=== PATIENT | male | born 1950 | race Caucasian/White ===

== ENCOUNTER → 2018-05-03 | Outpatient (CLI) | payer MEDICARE ==
[~2018-05-03] MED LIST: CLONIDINE0.1; GLYBURIDE 2.52.5 MG; HYDROCODONE-APA1 TA1 PO; KEFLEX500 MG PO; LISINOPRIL10 MG; LOPRESSOR100 M1; METFORMIN HCL500 MG
== END ==
LOC: M.RAD 17:00
DX: M47.816 Spondylosis without myelopathy or radiculopathy, lumbar region (principal); M25.78 Osteophyte, vertebrae; M48.061 Spinal stenosis, lumbar region without neurogenic claudication; M51.36 Other intervertebral disc degeneration, lumbar region; I70.0 Atherosclerosis of aorta; E11.9 Type 2 diabetes mellitus without complications; I10 Essential (primary) hypertension; I63.9 Cerebral infarction, unspecified

== ENCOUNTER → 2018-09-06 | Outpatient (CLI) | payer MEDICARE | LOC: M.NUC 07:22 | DX: R10.9 Unspecified abdominal pain (principal); E11.9 Type 2 diabetes mellitus without complications; I10 Essential (primary) hypertension; M54.5 Low back pain; G89.29 Other chronic pain; Z88.8 Allergy status to other drugs, medicaments and biological substances ==

== ENCOUNTER 2019-06-20 13:28 | Inpatient (IN) | payer MEDICARE ==
[~2019-06-20] VITALS: Ht 177.8 cm; Wt 127.9 kg
[~2019-06-20 13:28] MED LIST changes: +CLONIDINE HCL0.1 MG PO; -CLONIDINE0.1; -GLYBURIDE 2.52.5 MG; +GLYBURIDE 2.52.5 MG PO; -LISINOPRIL10 MG; +LISINOPRIL10 MG PO; -LOPRESSOR100 M1; +LOPRESSOR100 M1 PO
[2019-06-20] MEDS ORDERED: DILTIAZEM ER180 M2 PO (13:42)
[2019-06-20 13:51] LABS: ABSOLUTE BASOPHILS 0.1 thou/uL (0.0-0.2); ABSOLUTE EOSINOPHILS 0.2 thou/uL (0.0-0.7); ABSOLUTE LYMPHOCYTES 1.3 thou/uL (0.8-5.3); ABSOLUTE MONOCYTES 0.6 thou/uL (0.0-1.2); ABSOLUTE NEUTROPHILS 5.7 thou/uL (1.6-8.1); BASOPHILS 1.1 %; EOSINOPHILS 2.6 %; HEMATOCRIT 50.1 % (42.0-52.0); HEMOGLOBIN 16.1 gm/dL (14.0-18.0); LYMPHOCYTES 16.1 %; MCHC 32.2 g/dL (28.0-37.0); MCV 77.8 fL (80.0-100.0); MONOCYTES 8.1 %; MPV 8.5 fl. (7.2-11.1); NUCLEATED RBCS 0 /100WBC; PLATELET COUNT* 248 thou/uL (150-400); POLYS 72.1 %; RBC 6.43 mil/uL (4.50-6.00); RDW-CV 20.1 % (10.5-14.5)
[2019-06-20 14:01] LABS: CREATININE 1.8 mg/dL (0.6-1.3); POTASSIUM 3.9 mmol/L (3.5-5.1)
[2019-06-20 14:02] LABS: APTT 29.8 Seconds (25.0-31.3); INR 1.1; PROTIME 11.7 Seconds (9.20-11.50)
[2019-06-20 14:12] LABS: ALBUMIN 3.6 g/dL (3.4-5.0); TOTAL BILIRUBIN 1.4 mg/dL (<0.1-1.0); TOTAL PROTEIN 8.1 g/dL (6.4-8.2)
--- NOTE | 2019-06-20 15:38 | EKG ---
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1950 Requested By: Dharmesh Corona Order Number: [id number] MD: Jerry Blair Measurements Intervals [place] Rate: 104 P: -43 ID: 151 QRS: -11 QRSD: 114 T: 33 QT: 357 QTc: 470 Interpretive Statements atrial fibrillation Borderline low voltage, extremity leads Anteroseptal infarct, age indeterminate Baseline wander in lead(s) I,II,aVR No previous ECG available for comparison Electronically Signed On 06-20-2019 15:37:05 SUPERVISING PRODUCER by Jerry Blair [email or web address] <ELECTRONICALLY SIGNED> By: Jerry Blair MD, FACC 06/20/19 1537 1342 1342 Jerry Blair MD, FAC /EPI
[2019-06-20 20:02] VITALS: BP 128/61
[2019-06-20 20:30] VITALS: BP 142/69
[2019-06-21] VITALS (9 sets, daily range): BP systolic 140–206; BP diastolic 63–132
[2019-06-21 05:36] LABS: ABSOLUTE BASOPHILS 0.1 thou/uL (0.0-0.2); ABSOLUTE EOSINOPHILS 0.2 thou/uL (0.0-0.7); ABSOLUTE LYMPHOCYTES 0.9 thou/uL (0.8-5.3); ABSOLUTE MONOCYTES 0.6 thou/uL (0.0-1.2); ABSOLUTE NEUTROPHILS 5.2 thou/uL (1.6-8.1); EOSINOPHILS 3.4 %; HEMOGLOBIN 14.7 gm/dL (14.0-18.0); LYMPHOCYTES 12.5 %; MCHC 31.8 g/dL (28.0-37.0); MCV 78.6 fL (80.0-100.0); MONOCYTES 8.8 %; MPV 7.7 fl. (7.2-11.1); NUCLEATED RBCS 0 /100WBC; PLATELET COUNT* 213 thou/uL (150-400); POLYS 74.3 %; RBC 5.85 mil/uL (4.50-6.00); RDW-CV 20.3 % (10.5-14.5)
[2019-06-21 06:22] LABS: ALBUMIN 3.1 g/dL (3.4-5.0); CALCIUM 8.8 mg/dL (8.5-10.1); CREATININE 1.8 mg/dL (0.6-1.3); TOTAL BILIRUBIN 1.2 mg/dL (<0.1-1.0); TOTAL PROTEIN 7.2 g/dL (6.4-8.2)
--- NOTE | 2019-06-21 10:45 | CON ---
[address] [address] CONSULTATION Name: NEHEMIAH WILLIAMSON III Room: [address] IN .R.#: [id number] Admission: 06/20/19 Attend Phys: Pierre Ramos Discharge: Date of : 48 Report #: [id number] THIS REPORT FOR: //name// cc: Kashmir Kamara MD, David L. MD ~ THIS REPORT FOR: //name// CC: KASHMIR Dickey DATE OF SERVICE: 06/20/2019 CARDIOLOGY CONSULTATION HISTORY OF PRESENT ILLNESS: The patient is a 69-year-old white male who I was asked to see in the hospital today after he developed atrial fibrillation. The old records are not available; however, the patient states that 2 years ago, he was having episodes of an irregular heartbeat. He was seen by Dr. Kent, a insurance follow up representative [facility] in [place]. He was placed on Eliquis. He apparently converted to sinus rhythm and did not require electrical cardioversion. He eventually was taken off the Eliquis. He has done well since that time until past 2 weeks, he has had increasing shortness of breath and edema. He went to see Dr. Kamara today and was noted to be back in atrial fibrillation. He was sent to the hospital and admitted. He denies any chest pain, palpitations, syncope. He has had no bleeding problems. PAST MEDICAL HISTORY: He has had shoulder surgery. He has a history of hypertension, diabetes. MEDICATIONS: Consist of metformin, glyburide, lisinopril, metoprolol, diltiazem, and clonidine. ALLERGIES: HE HAS AN ALLERGY TO ACTOS. FAMILY HISTORY: His mother had heart disease. SOCIAL HISTORY: He is , lives in [place]. 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 Quit smoking years ago. No alcohol use. REVIEW OF SYSTEMS: He has a history of sleep apnea. He is 5 feet 10 inches and weighs 267 pounds. No history of liver disease. He has chronic kidney disease. No cancer. No psychiatric illness. No chronic skin condition. PHYSICAL EXAMINATION: VITAL SIGNS: Blood pressure is 160/80, pulse is 100. [place] [address] CONSULTATION Name: CLAYNEHEMIAH III Room: [address]#: [id number] Admission: 06/20/19 Attend Phys: Pierre Ramos Discharge: Date of : 48 Report #: [id number] HEENT: He is anicteric. Conjunctivae pink. Mucous membranes moist. NECK: Veins nondistended. No carotid bruits. CHEST: Clear to auscultation. CARDIOVASCULAR: Irregular rhythm. ABDOMEN: Obese. EXTREMITIES: Had trace edema. SKIN: Warm and dry. NEUROLOGIC: Nonfocal. RADIOLOGICAL DATA: His ECG on admission showed atrial fibrillation, rapid ventricular response rate, nonspecific ST and T-wave changes. His workup, he had a portable chest x-ray that showed normal heart size, mild vascular congestion. LABORATORY DATA: Workup today, BUN 24, creatinine 1.8. His troponin 0.06. BNP 3304. White blood cell count 8.8, hemoglobin 16.1. IMPRESSION AND RECOMMENDATIONS: 1. Paroxysmal atrial fibrillation. I would recommend BAILEE and cardioversion. I then consider antiarrhythmic therapy. I would resume Eliquis. 2. Hypertension. The patient is on an ARB. 3. Diabetes. 4. Sleep apnea. 5. Obesity. 6. Chronic kidney disease. <ELECTRONICALLY SIGNED> By: Kashmir Blair MD, FACC 06/21/19 1045 1742 [id number] Blair MD, FACC /nt
--- NOTE | 2019-06-21 15:24 | TEE ---
[place] [address] TRANSESOPHAGEAL ECHOCARDIOGRAM Name: NEHEMIAH WILLIAMSON III Room: [address] IN [facility]#: [id number] Admission: 06/20/19 Attend Phys: Spike Dickey Discharge: Date of : 48 Date of Service: 06/21/19 1523 Report #: [id number] THIS REPORT FOR: cc: Jerry Kamara MD, David L. MD [place], Michael J. MD [facility] ~ APPROVED REPORT Study performed: 06/21/2019 13:31:58 EXAM: Transesophageal Echocardiogram Patient Location: In-Patient Room #: [facility] Status: routine BSA: 2.36 HR: 103 bpm BP: 159/76 mmHg Rhythm: Atrial Fibrillation Other Information Study Quality: Good Indications Atrial Fibrillation Echo Enhancing Agent Indication: Rule out Shunt Agent(s) / Amount(s) Used: Agitated Saline 10 cc Procedure After obtaining informed consent, patient underwent transesophageal echo in the [employer] [employer]. Type of Sedation : Conscious Sedation Sedation was administered by Karma Moy RN. Sedation start time: 1340 Case end Time: 1355 Sedation was achieved intravenously with: Versed (3) Fentanyl (75) Transesophageal probe was inserted and advanced into esophagus without difficulty by Jeff Hernandez MD, FACC. Echo enhancement indication: R/O Septal defect. Echo enhancement agent administered: Agitated Saline Synchronized Cardioversion acheived with 300 Joules after 1 attempt(s). Rhythm following Synchronized Cardioversion: [place] [address] TRANSESOPHAGEAL ECHOCARDIOGRAM Name: NEHEMIAH WILLIAMSON III Room: [address]#: [id number] Admission: 06/20/19 Attend Phys: Spike Dickey Discharge: Date of : 48 Date of Service: 06/21/19 1523 Report #: [id number] Throughout the procedure, the blood pressure, pulse oximetry, cardiac rhythm, and rate were monitored. The patient tolerated the procedure without adverse effects. Recovery from conscious sedation was uneventful and vital signs were stable. Left Ventricle The left ventricle is normal size. There is normal LV segmental wall motion. There is normal left ventricular wall thickness. Left ventricular systolic function is normal. LVEF is 60-65%. Right Ventricle The right ventricle is normal size. The right ventricular systolic function is normal. Atria The left atrium size is normal. No thrombus is visualized in the left atrium or appendage. The interatrial septum is intact with no evidence for an atrial septal defect. The right atrium size is normal. Aortic Valve The aortic valve is normal in structure. No aortic regurgitation is present. There is no aortic valvular stenosis. Mitral Valve The mitral valve is normal in structure. Trace mitral regurgitation. No evidence of mitral valve stenosis. Tricuspid Valve The tricuspid valve is normal in structure. Mild tricuspid regurgitation. Pulmonic Valve The pulmonary valve is normal in structure. There is no pulmonic valvular regurgitation. Great Vessels The aortic root is normal in size. Atherosclerotic plaque is present in the descending aorta. Pericardium There is no pericardial effusion. <Conclusion> The left ventricle [place] [address] TRANSESOPHAGEAL ECHOCARDIOGRAM Name: NEHEMIAH WILLIAMSON III Room: [address] IN ..#: [id number] Admission: 06/20/19 Attend Phys: Spike Dickey Discharge: Date of : 48 Date of Service: 06/21/19 1523 Report #: [id number] There is normal left ventricular wall thickness. Left ventricular systolic function is normal. LVEF is 60-65%. The left atrium size is normal. No thrombus is visualized in the left atrium or appendage. The interatrial septum is intact with no evidence for an atrial septal defect. Trace mitral regurgitation. Mild tricuspid regurgitation. Atherosclerotic plaque is present in the descending aorta. <ELECTRONICALLY SIGNED> By: Jeff Hernandez MD, [facility] 06/21/19 1523 1523 1523 Jeff Hernandez MD, FACC /INF
[2019-06-22 00:28] VITALS: BP 124/67
[2019-06-22 04:11] VITALS: BP 174/88
[2019-06-22 07:50] VITALS: BP 184/97
[2019-06-22 09:39] LABS: ABSOLUTE BASOPHILS 0.1 thou/uL (0.0-0.2); ABSOLUTE EOSINOPHILS 0.3 thou/uL (0.0-0.7); ABSOLUTE LYMPHOCYTES 0.7 thou/uL (0.8-5.3); ABSOLUTE MONOCYTES 0.4 thou/uL (0.0-1.2); ABSOLUTE NEUTROPHILS 5.1 thou/uL (1.6-8.1); BASOPHILS 1.2 %; EOSINOPHILS 4.6 %; HEMATOCRIT 49.5 % (42.0-52.0); HEMOGLOBIN 15.7 gm/dL (14.0-18.0); LYMPHOCYTES 10.9 %; MCH 25.1 pg (26.0-34.0); MCHC 31.8 g/dL (28.0-37.0); MCV 79.1 fL (80.0-100.0); MONOCYTES 6.1 %; NUCLEATED RBCS 0 /100WBC; PLATELET COUNT* 221 thou/uL (150-400); POLYS 77.2 %; RBC 6.26 mil/uL (4.50-6.00); WBC 6.6 thou/uL (4.0-11.0)
[2019-06-22 09:48] LABS: ALBUMIN 3.5 g/dL (3.4-5.0); CALCIUM 8.8 mg/dL (8.5-10.1); CREATININE 1.5 mg/dL (0.6-1.3); POTASSIUM 4.3 mmol/L (3.5-5.1); TOTAL BILIRUBIN 1.5 mg/dL (<0.1-1.0); TOTAL PROTEIN 8.1 g/dL (6.4-8.2)
--- NOTE | 2019-06-22 10:41 | EKG ---
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1950 Requested By: Jerry Blair Order Number: [id number] MD: Jerry Blair Measurements Intervals [place] Rate: 81 P: NV: QRS: 13 QRSD: 119 T: 35 QT: 432 QTc: 502 Interpretive Statements Atrial fibrillation Nonspecific intraventricular conduction delay Low voltage, extremity leads Compared to ECG 06/20/2019 13:42:42 Intraventricular conduction delay now present Myocardial infarct finding no longer present Electronically Signed On 06-22-2019 10:40:58 HEALTH AND FITNESS INSTRUCTOR by Jerry Blair [email or web address] <ELECTRONICALLY SIGNED> By: Jerry Blair MD, FAC 06/22/19 1040 1304 1304 Jerry Blari MD, [facility] /EPI
[2019-06-22 12:44] VITALS: BP 181/96
[2019-06-22 12:53] VITALS: BP 181/96
[2019-06-22] MEDS ORDERED: TYLENOL325 MG PO (12:53)
[2019-06-22] MEDS ORDERED: SORINE 80 MG TA80 M1 PO (13:00)
[2019-06-22] MEDS ORDERED: ELIQUIS5 MG PO (13:03)
== END 2019-06-22 13:48 | disposition home or self-care (01) | DRG 682 ==
LOC: M.ERS 13:28 → M.TBA-ER 15:09 → M.2W 15:09
PROVIDERS: Emergency Medicine Emergency Medical Services; ADMIT Internal Medicine
PROC: B24BZZ4 Ultrasonography of Heart with Aorta, Transesophageal (ICD-10-PCS; principal; 2019-06-21)
PROC: 5A2204Z Restoration of Cardiac Rhythm, Single (ICD-10-PCS; principal; 2019-06-21)
DX: N17.9 Acute kidney failure, unspecified (principal); J96.01 Acute respiratory failure with hypoxia; I48.0 Paroxysmal atrial fibrillation; E66.9 Obesity, unspecified; I12.9 Hypertensive chronic kidney disease with stage 1 through stage 4 chronic kidney disease, or unspecified chronic kidney disease; E11.22 Type 2 diabetes mellitus with diabetic chronic kidney disease; G47.33 Obstructive sleep apnea (adult) (pediatric); E86.0 Dehydration; Z79.899 Other long term (current) drug therapy; Z79.84 Long term (current) use of oral hypoglycemic drugs; Z88.8 Allergy status to other drugs, medicaments and biological substances; Z82.49 Family history of ischemic heart disease and other diseases of the circulatory system

== ENCOUNTER → 2019-10-12 | Outpatient (CLI) | payer MEDICARE ==
[~2019-10-12] MED LIST changes: +DILTIAZEM ER180 M2 PO; +ELIQUIS5 MG PO; +SORINE 80 MG TA80 M1 PO; +TYLENOL325 MG PO
[2019-10-12 14:53] LABS: ABSOLUTE BASOPHILS 0.1 thou/uL (0.0-0.2); ABSOLUTE EOSINOPHILS 0.2 thou/uL (0.0-0.7); ABSOLUTE LYMPHOCYTES 1.3 thou/uL (0.8-5.3); ABSOLUTE MONOCYTES 0.7 thou/uL (0.0-1.2); ABSOLUTE NEUTROPHILS 5.4 thou/uL (1.6-8.1); BASOPHILS 0.8 %; EOSINOPHILS 2.5 %; HEMATOCRIT 21.5 % (42.0-52.0); LYMPHOCYTES 17.3 %; MCH 25.2 pg (26.0-34.0); MCHC 32.4 g/dL (28.0-37.0); MCV 77.9 fL (80.0-100.0); MONOCYTES 8.9 %; MPV 6.9 fl. (7.2-11.1); NUCLEATED RBCS 0 /100WBC; PLATELET COUNT* 285 thou/uL (150-400); POLYS 70.5 %; RBC 2.76 mil/uL (4.50-6.00); RDW-CV 17.9 % (10.5-14.5); WBC 7.7 thou/uL (4.0-11.0)
== END ==
LOC: M.LAB 14:35
PROVIDERS: ATTEND Internal Medicine
DX: D64.9 Anemia, unspecified (principal)